=== PATIENT | female | born 1975 | race Caucasian/White ===

== ENCOUNTER 2017-03-15 12:00 | Emergency (ER) | payer OTHER ==
[2017-03-15 12:12] VITALS: BP 109/73; PULSE 85; RESP 17; TEMP 98.2; O2SAT 99
[2017-03-15 12:13] VITALS: BMI 28.8
[2017-03-15] MEDS ORDERED: Oxycodone/Acetaminophen 5/325 mg Tab PO STA (12:54)
[2017-03-15] MEDS ORDERED: Oxycodone/Acetaminophen 5/325 mg Tab ONE (13:13)
--- NOTE | 2017-03-15 13:18 | C.PDOC ---
History Of Present Illness 41 yr old female presents to the ER with complaints of left shoulder pain for the past 2 days. Patient states the pain is worse with movement of the shoulder , has tried 1 Motrin yesterday. Patient denies trauma, fall, chest pain, SOB, back pain, neck pain, headache, weakness or numbness. Time Seen by Provider: 03/15/17 12:48 Chief Complaint (Nursing): Upper Extremity Problem/Injury History Per: Patient History/Exam Limitations: no limitations Onset/Duration Of Symptoms: Days (2) Current Symptoms Are (Timing): Still Present Past Medical History Reviewed: Historical Data, Nursing Documentation, Vital Signs Vital Signs: Last Vital Signs Temp 98.2 F 03/15/17 12:11 Pulse 85 03/15/17 12:11 Resp 17 03/15/17 12:11 BP 109/73 03/15/17 12:11 Pulse Ox 99 03/15/17 14:07 - Medical History PMH: No Chronic Diseases Family History: States: No Known Family Hx - Social History Hx Alcohol Use: No Hx Substance Use: No Review Of Systems Except As Marked, All Systems Reviewed And Found Negative. Cardiovascular: Negative for: Chest Pain Respiratory: Negative for: Shortness of Breath Musculoskeletal: Positive for: Shoulder Pain (Left shoulder ). Negative for: Neck Pain, Back Pain Neurological: Negative for: Weakness, Numbness, Headache Physical Exam - Physical Exam Appears: Well, Non-toxic, No Acute Distress Skin: Warm, Dry, No Rash Neck: Normal, Normal ROM, Trachea Midline, No Midline Cervical Tenderness, No Paracervical Tenderness, Supple Chest: Symmetrical, No Tenderness Cardiovascular: Rhythm Regular, No Murmur Extremity: Tenderness (Left Shoulder - Anterior tenderness), No Swelling, Other ((+) Marked decrease ROM due to pain. ) Neurological/Psych: Oriented x3, Normal Speech, Normal Motor, Normal Sensation Gait: Steady ED Course And Treatment O2 Sat by Pulse Oximetry: 99 - Other Rad X-Ray - Left Shoulder X-Ray: Viewed By Me, Read By Radiologist Interpretation: PROCEDURE: Radiographs of the Left Shoulder. HISTORY: pain no trauma. COMPARISON: No prior. FINDINGS: BONES: Normal. No fracture. JOINTS: Normal. Glenohumeral and acromioclavicular joints preserved. No osteoarthritis. SOFT TISSUES: Normal. OTHER FINDINGS: None. IMPRESSION: Normal radiographs of the left shoulder. Medical Decision Making Medical Decision Making: PLAN: * X-Ray - Left Shoulder * Percocet PO * Toradol IM Disposition - Disposition Referrals: Timi Brock III, MD [Staff Provider] - Disposition: HOME/ ROUTINE Disposition Time: 14:00 Condition: GOOD Prescriptions: Naproxen [Naprosyn] 1 tab PO BID PRN #25 tab PRN Reason: Pain oxyCODONE/Acetaminophen [Percocet 5/325 mg Tab] 1 tab PO Q4H PRN #8 tab PRN Reason: .severe pain Instructions: Tendinitis (ED) - Clinical Impression Clinical Impression: Tendinitis of shoulder - Scribe Statement The provider has reviewed the documentation as recorded by the Endy Eagle Provider Attestation: All medical record entries made by the Endy were at my direction and personally dictated by me. I have reviewed the chart and agree that the record accurately reflects my personal performance of the history, physical exam, medical decision making, and the department course for this patient. I have also personally directed, reviewed, and agree with the discharge instructions and disposition.
--- NOTE | 2017-03-15 13:53 | RAD ---
PROCEDURE: Radiographs of the Left Shoulder HISTORY: pain no trauma COMPARISON: No prior. FINDINGS: BONES: Normal. No fracture. JOINTS: Normal. Glenohumeral and acromioclavicular joints preserved. No osteoarthritis. SOFT TISSUES: Normal. OTHER FINDINGS: None. IMPRESSION: Normal radiographs of the left shoulder.
== END 2017-03-15 14:15 | disposition home or self-care (01) ==
LOC: C.ER 12:00
DX: M75.92 Shoulder lesion, unspecified, left shoulder (principal)
CPT/HCPCS: 73030; 96372; 99284; J1885